=== PATIENT | male | born 1955 | race Caucasian/White ===

== ENCOUNTER 2017-04-15 14:15 | Emergency (ER) | payer OTHER ==
[~2017-04-15] VITALS: Ht 180.3 cm; Wt 108.9 kg
[~2017-04-15 14:15] MED LIST: ASPIRIN EC325 MG PO; ASPIRIN EC81 MG PO; CALCIUM + VITA1 EACH PO; CARVEDILOL12.5 MG PO; COMBIVENT RESPIM4 GM INH; DOXYCYCLINE HY100 MG PO; LASIX40 MG PO; NORCO 5-325 TA1 EACH PO; PREDNISONE20 MG PO; PROVENTIL HFA6.7 GM INH; SIMVASTATIN10 MG PO; XTANDI40 MG PO
[2017-04-15] MEDS ORDERED: HYCAMTIN PO (14:33)
[2017-04-15] MEDS ORDERED: PROMETHAZINE HC25 M1 PO (14:34)
[2017-04-15] MEDS ORDERED: K-TAB ER20 MEQ PO (15:44)
== END 2017-04-15 15:44 | disposition home or self-care (01) ==
LOC: ED 14:15
DX: N50.89 Other specified disorders of the male genital organs (principal); E78.00 Pure hypercholesterolemia, unspecified; I10 Essential (primary) hypertension; C61 Malignant neoplasm of prostate; F17.200 Nicotine dependence, unspecified, uncomplicated; Z79.899 Other long term (current) drug therapy; Z79.82 Long term (current) use of aspirin
CPT/HCPCS: 76870; 81001; 99284

== ENCOUNTER 2017-04-22 10:50 | Inpatient (IN) | payer OTHER ==
[~2017-04-22] VITALS: Ht 180.3 cm; Wt 108.9 kg
[~2017-04-22 10:50] MED LIST changes: +HYCAMTIN PO; +K-TAB ER20 MEQ PO; +PROMETHAZINE HC25 M1 PO
--- NOTE | 2017-04-22 15:33 | NUR ---
DR. PEREZ IN TO SEE PATIENT. PATIENT IS HAVING 9/10 LEFT SIDED PAIN. 4MG OF IV MORPHINE GIVEN, WARM BLANKET APPLIED TO LEFT SIDE. BLADDER TO BE FLUSHED EVERY 2-4 HOURS.
--- NOTE | 2017-04-22 15:40 | NUR ---
PT ARRIVED TO MED SURG UNIT ROOM 109 AT 1515. SCROTUM LARGELY SWOLLEN. ICE PACK UNDERNEATH SCROTUM NOW. CATHETER DRAINING YELLOW URINE WITH BLOOD. BLOOD CLOT DISLODGED NEAR PORT INSERTION WITH 10ML SALINE. PT C/O SEVERE LEFT FLANK PAIN. MORPHINE 4MG IV ORDERED AND GIVEN TO PATIENT.
[2017-04-22] MEDS ORDERED: VENTOLIN HFA18 GM INH (17:05)
[2017-04-22] MEDS ORDERED: LASIX20 MG PO (17:06)
[2017-04-22] MEDS ORDERED: K-TAB ER20 MEQ PO (17:10)
--- NOTE | 2017-04-22 17:12 | NUR ---
Medications reconciled by pharmacist per patient med list/patient interview. He takes Xtandi (enzalutamide) 160mg dose PO daily for prostate cancer. He will have someone bring in his medication and he will take it as an inpatient. 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 He also takes Hycamtin (topotecan) 5mg dose PO 5 consecutive days of a 21 day cycle. His last dose was taken Saturday, 04/18, therefore it is not likely that it will be needed during this hospital stay.
--- NOTE | 2017-04-22 18:29 | NUR ---
PT ON CONTINUOUS BLADDER IRRIGATION. DOCUMENT INPUT AFTER CBI BAGS EMPTY-- DO NOT LET THE BAGS EMPTY COMPLETELY!!! MONITOR HOURLY. IVF INFUSING INTO RIGHT HAND. CATHETER POSITIONAL. BE CAREFUL! IF PATIENT SPIKES FEVER, ALERT MD RIGHT AWAY. SCROTUM VERY SWOLLEN.
--- NOTE | 2017-04-22 19:00 | NUR ---
RECEIVED REPORT FROM RN. PATIENT DENIES NEEDS AT THIS TIME.
--- NOTE | 2017-04-22 19:58 | NUR ---
dr perez in to check on pt. pt denies feeling full in the bladder. catheter bag emptied x2 since beginning of shift, draining red (red cool aid) urine. pt has call light in reach. sitting up in bed, watching tv. no further needs at this time.
--- NOTE | 2017-04-22 20:23 | NUR ---
SHIFT ASSESSMENT DONE AND EVENING MEDICATION GIVEN. HEART RATE OF 58 NOTED, DR. PEREZ NOTIFIED AND HE SAID TO ADMINISTERED THE COREG. PATIENT DENIES NEEDS AT THIS TIME. RESTING COMFORTABLY IN BED, CALL LIGHT WITHIN REACH.
--- NOTE | 2017-04-22 20:52 | NUR ---
PT COMPLAINED OF FEELING A NAUSEOUS, GAVE ZOFRAN FROM NAUSEA. PT STATES "ITS NOT ALL THAT BAD, BUT I DO FEEL LISBETH JUST QUEEZY." PT IN NO DISTRESS AT THIS TIME. LAYING IN BED, WATCHING TV. NO FURTHER NEEDS.
--- NOTE | 2017-04-22 22:58 | NUR ---
SPOKE WITH DR PEREZ VIA TELEPHONE. URINE IN AMIN TUBING HAS LIGHTENED SIGNIFICANTLY TO LIGHT PINK. OKAY TO TURN DOWN THE IRRIGATION OUT FLOW TO ABOUT HALF OF WHAT IT IS GOING NOW. WILL CONTINUE TO MONITOR CLOSELY.
--- NOTE | 2017-04-22 23:46 | NUR ---
PATIENT IS RESTING COMFORTABLY IN BED. BREATHING IS EVEN AND UNLABORED.
--- NOTE | 2017-04-23 01:58 | NUR ---
PATIENT RESTING COMFORTABLY IN BED. BREATHING IS EVEN AND UNLABORED. CALL LIGHT WITHIN REACH.
--- NOTE | 2017-04-23 03:50 | NUR ---
pt complains of mild pain in his right lower quadrant, reports its the same pain that he has had since beginning of shift. refused pain meds. states "no, its not that bad right now." will continue to monitor. berger output remains light to clear pink, but tubing and berger bag have some bright red blood clots now. putting new irragation fluid bags and emptying berger bag approximatley every hour.
--- NOTE | 2017-04-23 04:15 | NUR ---
PT DECIDED TO TAKE A TYLENOL. REPORTS PAIN REMAINS THE SAME, BUT THAT IT IS "JUST REALLY ANNOYING." RATES PAIN AT 4/10. GAVE TYLENOL FOR PAIN.
--- NOTE | 2017-04-23 04:36 | NUR ---
PATIENT RESTING COMFORTABLY IN BED. BREATHING IS EVEN AND UNLABORED. CALL LIGHT WITHIN REACH.
--- NOTE | 2017-04-23 05:23 | NUR ---
pt appears to be sleeping at the moment, rr wnl and unlabored. eyes are closed. lights and tv off in room.
--- NOTE | 2017-04-23 05:51 | NUR ---
ASSISTED PT UP ON BEDPAN PER REQUEST, PT THOUGHT HE MIGHT HAVE TO HAVE A BM. NO BM AT THIS TIME. PT OFF BEDPAN. DRAINAGE FROM AMIN RAN DARKER AGAIN AFTER MOVING PT, THEN TURNED BACK TO LIGHT PINK DRAINAGE IN THE TUBING. IRRIGATION SYSTEM DRAINING FREELY. PT REPORTS TYLENOL HELPED WITH HIS PAIN. NO FURTHER NEEDS. CALL LIGHT IN REACH.
--- NOTE | 2017-04-23 06:08 | NUR ---
PATIENT'S NIGHT WAS UNEVENTFUL. HE HAS BEEN RESTING IN BED THROUGHOUT SHIFT. VSS, PAIN CONTROLLED WITH PRN TYLENOL PER EMAR. NO ACUTE CHANGES FROM BEGINNING OF SHIFT ASSESSMENT. INTENTIONAL ROUNDING DONE WITH ALL PATIENT'S NEEDS MET.
--- NOTE | 2017-04-23 06:49 | NUR ---
RECEIVED CRITICAL H/H OF 6.[address] PEREZ NOTIFIED AND HE ORDERED FOR THE PATIENT TO BY CROSS-MATCHED FOR 2 UNITS OF BLOOD. BLOOD IS NOT TO BE TRANSFUSED UNTIL AFTER DR. PEREZ ASSESSES PATIENT. NO OTHER ORDERS.
--- NOTE | 2017-04-23 06:55 | NUR ---
PT RESTLESS IN BED, IMPULSIVE, ATTEMPTING TO SWING LEGS OVER SIDE OF BED DESPITE REORIENTATION. ATTEMPT MADE TO ADMINISTER PRN PAIN MEDICATION, PT REFUSES TO TAKE BITE. BED ALARM IN PLACE, FALL MAT PRESENT AT BEDSIDE. ROOM IN VIEW OF NURSE'S STATION WITH CURTAIN OPEN.
--- NOTE | 2017-04-23 07:15 | NUR ---
PT COMPLAINED OF FEELING NAUSEOUS, NO EMESIS THIS SHIFT. GAVE ZOFRAN FOR NAUSEA.
--- NOTE | 2017-04-23 10:09 | NUR ---
DR. PEREZ UPDATED ON VEIN ACCESS STATUS, BLOOD INFUSION STARTED, BLADDER IRRIGATION AND NEED FOR FREQUENT FLUSHES.
--- NOTE | 2017-04-23 10:21 | NUR ---
5275ML OUT OF AMIN CATHETER BAG. APPROXIMATELY 5500 OF STERILE WATER IRRIGATION INFUSED VIA CBI. ESTIMATING 225 URINE OUTPUT FROM [id number].
--- NOTE | 2017-04-23 10:30 | NUR ---
IRRIGATING CATHETER WITH 60ML SALINE HOURLY TO FLUSH CLOTS THROUGH TUBE.
--- NOTE | 2017-04-23 13:48 | NUR ---
PT HAVING A TOUGH DAY, NAUSEA A PROBLEM. HE DID RECOGNIZE ME, REACHED OUT TO SHAKE MY HAND AND MUSTERED A SMILE. PT SAID HE MISSED THE BEAUTIFUL FALL DAYS LIKE TODAY-NOT BEING ABLE TO BE OUT. DIDN'T NEED TO ALFONSO ANYMORE-JUST SPEND TIME IN THE [place]. PT REQUESTED PRAYER. WILL FOLLOW NEEDED
--- NOTE | 2017-04-23 13:56 | NUR ---
6000ML BLADDER IRRIGATION FLUID INFUSED. AMIN OUTPUT 7375ML FROM [id number]. FROM [id number] PATIENT HAS HAD 12,000ML IRRIGATION FLUID INFUSED. AMIN OUTPUT 12,650 OUTPUT. URINE OUTPUT HAS BEEN 650ML SINCE 0700.
--- NOTE | 2017-04-23 17:07 | NUR ---
CBI SLOWING DOWN. MAY NEED TO IRRIGATE WITH 60CC SYRINGE Q2-3H PRN TO BREAK UP CLOTS. 2 UNITS PRBC RECEIVED TODAY. LABS IN AM. MORPHINE GIVEN FOR LEFT FLANK PAIN. PT NOOB. ENCOURAGE REPOSITIONING. AMIN DRAINS CLEAR TO RED URINE. REDNESS INCREASES WITH POSITION CHANGES. APPETITE POOR. ENCOURAGE PROTEIN INTAKE. D5LR @ 125. NEW IV 20G IN LEFT HAND.
--- NOTE | 2017-04-23 17:49 | NUR ---
6000ml irrigation fluid infused into CBI. 6450ml output into berger bag. The difference equals 450ml of urine output.
--- NOTE | 2017-04-23 20:16 | NUR ---
PT COMPLAINED OF PAIN IN HIS LOWER ABD, RADIATING TO HIS "BELLY BUTTON." GAVE MORPHINE AND FLUSHED CATHETER WITH 60MLS OF STERILE WATER. PAIN ALMOST INSTANTLY STARTED TO DIMINISH AFTER CATHETER FLUSHED. AMIN PUTTING OUT LIGHT RED DRAINAGE. BROUGHT FRESH ICE WATER. PT HAS NO FURTHER NEEDS AT THIS TIME. CALL LIGHT IN REACH.
--- NOTE | 2017-04-23 20:37 | NUR ---
NURSE IN ROOM, PATIENT DOING WELL.
--- NOTE | 2017-04-23 21:40 | NUR ---
AMIN HAS REQUIRED FLUSHING APPROXIMATLEY EVERY 20 MINUTES SINCE BEGINNING OF SHIFT, THIS TIME FLUSHED WITH 60MLS STERILE WATER X4, LARGE BLOOD CLOTS RETURNED IN THE AMIN BAG. DRAINING FREELY NOW, RUNNING IRRIGATION FLUIDS A LITTLE FASTER, TITRATED UP UNTIL DRAINAGE TURNED LIGHT PINK. PT REPORTS 8-9/10 PAIN WHEN AMIN STOPS DRAINING, REPORTS PAIN SOON IT STARTS; PT REPORTS "100% BETTER," ALMOST IMMEDIATLY AFTER UNCLOGGING CATHETER. PT DID REPORT SOME NAUSEA, WHICH ZOFRAN WAS GIVEN. PT HAS NO FURTHER NEEDS AT THIS TIME. CALL LIGHT IS IN REACH.
--- NOTE | 2017-04-23 23:58 | NUR ---
PATIENT IN BED SLEEPING.
--- NOTE | 2017-04-23 23:59 | NUR ---
PT RESTING QUIETLY, APPEARS ASLEEP, RR WNL AND UNLABORED. CONTINUOUS BLADDER IRRIGATION RUNNING AND DRAINING FREELY. DRAINAGE IS LIGHT RED. LIGHTS AND TV OFF IN ROOM.
--- NOTE | 2017-04-24 03:02 | NUR ---
catheter required flushing. flushed with 60mls sterile water. draining well now. pt reports pain in his "left hip," states "01/28". gave morphine for pain. also repositioned pt in bed. gave fresh ice water. no further needs. call light in reach.
--- NOTE | 2017-04-24 03:04 | NUR ---
NURSES IN ROOM
--- NOTE | 2017-04-24 04:38 | NUR ---
PATIENT'S NIGHT HAS BEEN UNEVENTFUL. HE HAS BEEN RESTING COMFORTABLY IN BED THROUGHOUT SHIFT. VSS, PAIN WELL CONTROLLED WITH MORPHINE AND NAUSEA CONTROLLED WITH ZOFRAN. NO ACUTE CHANGES FROM BEGINNING OF SHIFT ASSESSMENT. INTENTIONAL ROUNDING DONE WITH ALL PATIENT'S NEEDS MET.
--- NOTE | 2017-04-24 06:18 | NUR ---
PT WOKE TO IV BAG BEING CHANGED. REQUSTED TO LIFT HIS LEFT LEG TO EASE HIS PAIN IN KNEE. ASSISTED. STATED COMFORT.
--- NOTE | 2017-04-24 06:27 | NUR ---
UPDATED DR. PEREZ ON H/H OF 6.5/18.6. ORDERED 2 UNITS TO BE CROSS-MATCHED.
--- NOTE | 2017-04-24 07:30 | NUR ---
RECIEVED REPORT FROM DAY SHIFT NURSE. PT RESTING SUPINE IN BED. CBI IN PLACE. IVF INFUSING. AMIN EMPTIED. HEMATURIA NOTED IN FOELY BAG. ICE PACK PLACED UNDER SCROTUM FOR COMFORT-PER PT'S REQUEST. AMIN FLUSHED. MEAL TRAY IN ROOM. PT STATES HE IS NOT HUNGRY NOW, BUT HE MIGHT WANT IT LATER. CALL GONZALEZ IN REACH.
--- NOTE | 2017-04-24 07:50 | NUR ---
PT AWAKE IN ROOM. EMPTYED HIS AMIN. EMPTYED GARBAGE. CLEANED ROOM. GAVE PT A WET WASH CLOTH. AM CARE.
--- NOTE | 2017-04-24 08:45 | NUR ---
FIRST UNIT OF BLOOD HAS STARTED. VS OBTAINED. PT C/O PAIN IN LLQ. FLUSHED AMIN WITH 30CC OF STERILE WATER. PAIN MEDS ADMINISTERED PER MAR. PT STATES HE FEELS NAUSEOUS AFTER POTASSIUM PILLS. ZOFRAN ADMINISTERED. PT DENIES FURTHER NEEDS CALL GONZALEZ IN REACH.
--- NOTE | 2017-04-24 09:41 | NUR ---
PT RESTING IN BED. TALKING WITH HOUSEKEEPING. CBI STILL IN PLACE. BLOOD INFUSING W/O DIFFICULTY. CALL GONZALEZ IN REACH.
--- NOTE | 2017-04-24 10:58 | NUR ---
PT STATES HIS PAIN IN HIS LLQ IS TOLERABLE, RATING PAIN 2-3/10. FLUSHED AMIN CATHETER. CBI IN PLACE. 1ST UNIT OF BLOOD HAS FINISHED. OBTAINED VS. PT DENIES NEEDS. NO C/O NAUSEA.
--- NOTE | 2017-04-24 11:15 | NUR ---
SECOND UNIT OF BLOOD STARTED. DR. PEREZ IN TO SEE PT. SLOWED CBI. URINE APPEARING MORE CLEAR. PT SLEEPING AT THIS TIME. CALL GONZALEZ IN REACH.
--- NOTE | 2017-04-24 11:32 | NUR ---
PT RESTING IN BED. SECOND UNIT OF BLOOD INFUSING. VS OBTAINED. PT C/O NAUSEA, STATES IT WILL GO AWAY IF HE IS STILL. REFUSES MEDS AT THIS TIME. TUMS ADMINISTERED. DENIES FURTHER NEEDS.
--- NOTE | 2017-04-24 12:00 | NUR ---
PT RESTING. STATES HE IS NO LONGER NAUSEOUS. BLOOD INFUSING W/O DIFFICULTY. DENIES NEEDS. CALL GONZALEZ IN REACH.
--- NOTE | 2017-04-24 12:27 | NUR ---
PT RESTING IN BED. ASKED TO HAVE HIS DOOR SHUT SO THAT HE MAY GET SOME SLEEP. CBI IN PLACE. BLOOD TRANSFUSING W/O DIFFICULTY. CALL GONZALEZ IN REACH.
--- NOTE | 2017-04-24 14:15 | NUR ---
ORAL CARE DONE. PATIENT SITTING UP IN CHAIR WITH FEET UP. CALL BUTTON IN REACH. PATIENT FINISHED ENSURE. / BANANA EATEN. FRESH WATER GIVEN. NO OTHER NEEDS AT THIS TIME.
--- NOTE | 2017-04-24 14:18 | NUR ---
PT RESTING IN BED. FLUSHED CATHETER. PAIN MEDS ADMINISTERED FOR 7/10 PAIN IN LLQ. PT DENIES FURTHER NEEDS. CBI IN PLACE. CALL GONZALEZ IN REACH. BLOOD INFUSING W/O DIFFICULTY.
--- NOTE | 2017-04-24 14:33 | NUR ---
PT AWAKE IN BED. EMPTEYED AMIN. GOT PT FRESH ICE WATER.
--- NOTE | 2017-04-24 14:59 | NUR ---
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 BLOOD HAS FINISHED INFUSING. PT DENIES FURTHER NEEDS. CALL GONZALEZ IN REACH.
--- NOTE | 2017-04-24 15:45 | NUR ---
PT PICKED UP BY [employer] VIA STRETCHER. PT STATES PAIN WNL. AMIN EMPTIED. TWO FULL BAGS HANGING FOR CBI. PARAMEDICS GIVEN REPORT. EXPLAINED CBI. QUESTIONS ANSWERED. WATER PITCHER FILLED. PT DENIES FURTHER NEEDS. PT HEADED OT VIKRAM SUE FOR FURTHER TREATMENT. HOME MEDS RETURNED.
== END 2017-04-24 15:52 | disposition home or self-care (01) | DRG 694 ==
LOC: ED 10:50 → MS 14:40
PROVIDERS: ADMIT Internal Medicine
PROC: 30233N1 Transfusion of Nonautologous Red Blood Cells into Peripheral Vein, Percutaneous Approach (ICD-10-PCS; principal; 2017-04-23)
DX: N13.8 Other obstructive and reflux uropathy (principal); N13.1 Hydronephrosis with ureteral stricture, not elsewhere classified; D61.818 Other pancytopenia; C78.00 Secondary malignant neoplasm of unspecified lung; C78.7 Secondary malignant neoplasm of liver and intrahepatic bile duct; C79.82 Secondary malignant neoplasm of genital organs; C77.8 Secondary and unspecified malignant neoplasm of lymph nodes of multiple regions; R31.9 Hematuria, unspecified; D64.9 Anemia, unspecified; I10 Essential (primary) hypertension; E78.5 Hyperlipidemia, unspecified
CPT/HCPCS: 36415; 36430; 51700; 51702; 51798; 76770; 80053; 80069; 81001; 82306; 82570; 83615; 83735; 84153; 84300; 85025; 86850; 86900; 86901; 86920; 96361; 96374; 96375; 99285; J1170; J1447; J2270; J2405; J7030; J7120; P9016